=== PATIENT | male | born 1980 | race Two or more races ===

== ENCOUNTER 2022-04-16 14:36 | Emergency (ER) | payer OTHER ==
[~2022-04-16] VITALS: Ht 175.3 cm; Wt 78.9 kg
[2022-04-16] MEDS ORDERED: TAMS0.4C PO (18:59)
[2022-04-16] MEDS ORDERED: KETO10TA2 PO (18:59)
[2022-04-16] MEDS ORDERED: CIPRO500 MG PO (18:59)
== END 2022-04-16 20:49 | disposition home or self-care (01) ==
LOC: ER 14:36 → EDBD 14:36 → ER 16:16
DX: N20.9 Urinary calculus, unspecified (principal); N20.0 Calculus of kidney